=== PATIENT | male | born 1990 ===

== ENCOUNTER 2024-10-10 14:02 | Outpatient (REF) | payer SELFPAY ==
--- OUTSIDE RECORDS SUMMARY | 2024-10-10 15:49 | XMS_ITS | Encounter Summary ---
Author Organization [employer] Address [address] [facility] 7[address] [place] [address] Care Team Providers Care House Wrecker Name Role Phone Meghana Selin NAGEL Primary Care Provider [phone] Reason for Visit * Reason Comments Cough Nasal Congestion Encounter Details Date Type Department Care Team ([facility] st Contact Info) Description 10/10/2024 11:20 AM EST Office Visit [facility] [address] [place] [address] [phone] Marcus Davalos MD [address] [place] [address] Viral URI Social History Tobacco Use Types Packs/Day Years Used Date Smoking Tobacco: Never Passive Smoke Exposure: Never Smokeless Tobacco: Never Alcohol Use Standard Drinks/Week Comments Yes 0 (1 standard drink = 0.6 oz pur e alcohol) Rarely Housing Stability Answer Date Recorded What is your housing situation today? I have jovanni renteria 07/23/[address] you li ve. Do you have problems with any of the following? None of the above 07/23/2023 Food Insecurity Answer Date Recorded Within the past 12 months, y ou worried that your food would run out before you got money to buy more: Never True 07/23/2023 Within the past 12 months,th e food you bought just didn't last and you didn't have enough money to get more: Never True 02/2023 Utilities Answer Date Recorded In the past 12 months, has t he electric, gas, oil or water company threatened to shut off services in your home? No 07/23/2023 Depression Answer Date Recorded Patient Health Questionnaire-2 Score 0 09/15/2022 Sex and Gender Information Value Date Recorded Sex Assigned at Male 07/17/2022 10:36 AM EDT Legal Sex Male 10:36 AM EDT Gender Identity Male 07/17/2022 10:36 AM EDT Sexual Orientation Straight 07/17/2022 10 :36 AM EDT documented as of this encounter Last Filed Vital Signs Vital Sign Reading Time Taken Comments Blood Pressure 145/85 10/10/2024 11:15 AM EST Pulse 79 10/10/2024 11:15 AM EST Temperature 36.8 ??C (98.3 ??F) 10/10/2024 11:[address] Respiratory Rate 16 10/10/2024 11:15 AM EST Oxygen Saturation 98% 10/10/2024 11:15 AM EST Inhaled Oxygen Concentration - - Weight 85.3 kg (188 lb) 10/10/2024 11:15 AM EST Height - - Body Mass Index 28.59 09/15/2022 9:31 AM EST documented in this encounter Progress Notes * Marcus Davalos MD - 10/10/2024 11:20 AM EST Subjective History was provided by the patient. Carmelo Mendoza is a 34 y.o. male who presents for evaluation of symptoms of a URI. Symptoms include cough, fever, and congestion. Onset of symptoms was 6 days ago, gradually improving since that time. Associated negative symptoms include shortness of breath, vomiting, and diarrhea. Evaluation to date: none. Recently recovered from viral gastroenteritis. Objective Vitals: 10/10/24 1115 BP: (!) 145/85 BP Location: Left arm Patient Position: Sitting BP Cuff Size: Adult Pulse: 79 Resp: 16 Temp: 98.3 ??F (36.8 ??C) TempSrc: Temporal SpO2: 98% Weight: 188 lb (85.3 kg) Physical Exam Vitals reviewed. Constitutional: General: He is not in acute distress. Appearance: Normal appearance. He is not ill-appearing, toxic-appearing or diaphoretic. HENT: Head: Normocephalic and atraumatic. Right Ear: Tympanic membrane, ear canal and external ear normal. Left Ear: Tympanic membrane, ear canal and external ear normal. Nose: Congestion present. No rhinorrhea. Mouth/Throat: Mouth: Mucous membranes are moist. Pharynx: Oropharynx is clear. No oropharyngeal exudate or posterior oropharyngeal erythema. Eyes: Extraocular Movements: Extraocular movements intact. Conjunctiva/sclera: Conjunctivae normal. Pupils: Pupils are equal, round, and reactive to light. Cardiovascular: Rate and Rhythm: Normal rate and regular rhythm. Heart sounds: Normal heart sounds. Pulmonary: Effort: Pulmonary effort is normal. No respiratory distress. Breath sounds: Normal breath sounds. No wheezing, rhonchi or rales. Musculoskeletal: Cervical back: Normal range of motion and neck supple. Lymphadenopathy: Cervical: No cervical adenopathy. Skin: General: Skin is warm and dry. Neurological: General: No focal deficit present. Mental Status: He is alert and oriented to person, place, and time. Psychiatric: Mood and Affect: Mood normal. Behavior: Behavior normal. Office Visit on 10/10/2024 Component Date Value Ref Range Status Influenza A 10/10/2024 Negative Negative, Indeterminate Final Influenza B 10/10/2024 Negative Negative, Indeterminate Final Rapid COVID Ag 10/10/2024 Negative Final Carmelo was seen today for cough and nasal congestion. Diagnoses and all orders for this visit: Viral URI - Influenza A (ID NOW Rapid Molecular) - Influenza B (ID NOW Rapid Molecular) - POCT Rapid COVID Ag - Respiratory Viral Panel PCR; Future Patient with a clinical presentation of viral URI Normal pulmonary exam and no respiratory distress O2 sat reassuring Rapid COVID-19 and Influenza A/B negative today Discussed supportive care with ample hydration, sleep position and rest Check Respiratory panel OTC supportive medications reviewed Droplet precautions discussed Advised to contact the clinic if no improvement of symptoms Indications for UC/ER use reviewed Work note provided documented in this encounter Plan of Treatment Scheduled Orders Name Type Priority Associated Diagnoses Orde r Schedule Respiratory Viral Panel PCR Lab Routine Viral URI Expected: 10/10/2024 (Approximate), Expires: 10/10/2025 documented as of this encounter Procedures Procedure Name Priority Date/Time Associated Diagnosis Comments POCT INFLUENZA B (ID NOW RAPID MOLECULAR) Routine 10/10/2024 11:17 AM EST Viral URI POCT INFLUENZA A (ID NOW RAPID MOLECULAR) Routine 10/10/2024 11:17 AM EST Viral URI POCT RAPID COVID ANTIGEN Routine 10/10/2024 11:17 AM EST Viral URI documented in this encounter Results * POCT Rapid COVID Ag (10/10/2024 11:17 AM EST) Pathologist [facility] Rapid COVID Ag Negative Swab 10/10/2024 11:1 7 AM EST us Marcus Davalos MD POINT OF CARE TEST ENTER/EDIT OR DERABLES Final Result * Influenza B (ID NOW Rapid Molecular) (10/10/2024 11:17 AM EST) [facility] Influenza B Negative Negative, Indeterminate [facility] Swab 10/10/2024 11:1 7 AM EST us Marcus Davalos MD POINT OF CARE TEST ENTER/EDIT OR DERABLES Final Result Performing Organization Address [facility] Co de Phone Number [facility] [address] [place] [phone] * Influenza A (ID NOW Rapid Molecular) (10/10/2024 11:17 AM EST) [facility] Influenza A Negative Negative, Indeterminate [facility] Swab 10/10/2024 11:1 7 AM EST us Marcus Davalos MD POINT OF CARE TEST ENTER/EDIT OR DERABLES Final Result Performing Organization Address [facility] Co de Phone Number [facility] [address] [place] [phone] documented in this encounter Visit Diagnoses Diagnosis Viral URI Acute upper respiratory infections of unspecified site documented in this encounter Care Teams House Wrecker Relationship Specialty Start Date End Date Selin Kowalski ANP [address] [place] [phone] PCP - General Family Medicine 08/16/22 documented as of this encounter
--- OUTSIDE RECORDS SUMMARY | 2024-10-10 15:49 | XMS_ITS | Clinical Summary ---
Author Organization [employer] Address [address] [facility] 7t [place] [address] Care Team Providers Care Net Wpf Developer Name Role Phone Selin Kowalski SHONA Primary Care Provider [phone] Allergies No known active allergies Medications No known medications Active Problems No known active problems Encounters Date Type Department Care Team Description 10/10/2024 11:20 AM EST Office Visit [facility] [address] [place] [address] Marcus Davalos MD Viral URI from Last 3 Months Immunizations Name Administration Dates Next Due Influenza injectable quadriv alent preservative free 09/15/2022,06/14/2021,07/08/2020,2017 Moderna Covid-19 Vaccine 12+ 02/09/2021,01/06/20 21 Tdap 03/04/2021 Varicella 12/30/2015 Social History Tobacco Use Types Packs/Day Years Used Date Smoking Tobacco: Never Passive Smoke Exposure: Never Smokeless Tobacco: Never Tobacco Cessation:Counseling Given: No Alcohol Use Standard Drinks/Week Comments Yes 0 (1 standard drink = 0.6 oz pur e alcohol) Rarely Housing Stability Answer Date Recorded What is your housing situation today? I have jovannilorie renteria 07/23/[address] you [...] Orientation Straight 07/17/2022 10 :36 AM EDT Last Filed Vital Signs Vital Sign Reading Time Taken Comments Blood Pressure 145/85 10/10/2024 11:15 AM EST Pulse 79 10/10/2024 11:15 AM EST Temperature 36.8 ??C (98.3 ??F) 10/10/2024 11:[address] Respiratory Rate 16 10/10/2024 11:15 AM EST Oxygen Saturation 98% 10/10/2024 11:15 AM EST Inhaled Oxygen Concentration - - Weight 85.3 kg (188 lb) 10/10/2024 11:15 AM EST Height 172.7 cm (5' 8 ) 09/15/2022 9:31 AM EST Body Mass Index 28.59 09/15/2022 9:31 AM EST Plan of Treatment Health Maintenance Due Date Last Done Comments Alcohol/Substance Use Screening 2001 Family Planning (PISQ) 2004 Hepatitis B Vaccines (1 of 3 - 19+ 3-dose series) 2008 Depression Screening 09/15/2023 09/15/2022, 09/15/20 22 SDOH Screening 09/15/2023 09/15/2022 Tobacco Screening 09/15/2023 09/15/2022 COVID-19 Vaccine ( season) 2024 09/16/2021, 02/09/2021, 01/05/2021 Influenza Vaccine (#1) 2024 , 06/14/2021, 07/08/2020, Additional history exists Lipid Panel 03/04/2026 03/04/2021 DTaP/Tdap/Td Vaccines (2 - Td or Tdap) 03/04/2031 03/04/2021 Zoster Vaccines (1 of 2) 2039 RSV Patients and Patients Aged 60 years or older (1 - 1-dose 75+ series) 2064 HIV Screening Completed 03/04/2021 Hepatitis C Screening Completed 03/04/2021 HIB Vaccines Aged Out No longer eligi ble based on patient's age to complete this topic HPV Vaccines Aged Out No longer eligi ble based on patient's age to complete this topic Hepatitis A Vaccines Aged Out No long er eligible based on patient's age to complete this topic IPV Vaccines Aged Out No longer eligi ble based on patient's age to complete this topic Meningococcal Vaccine Aged Out No el deborah eligible based on patient's age to complete this topic Pneumococcal Vaccine: Pediatrics (0 to 5 Years) and At-Risk Patients (6 to 64 Years) Aged Out No longer eligible based on patient's age to complete this topic RSV under 20 months Aged Out No longe r eligible based on patient's age to complete this topic Rotavirus Vaccines Aged Out No longer eligible based on patient's age to complete this topic Procedures Procedure Name Priority Date/Time Associated Diagnosis Comments POCT RAPID COVID ANTIGEN Routine 10/10/2024 11:17 AM EST Viral URI POCT INFLUENZA B (ID NOW RAPID MOLECULAR) Routine 10/10/2024 11:17 AM EST Viral URI POCT INFLUENZA A (ID NOW RAPID MOLECULAR) Routine 10/10/2024 11:17 AM EST Viral URI ZZZ HISTORICAL HEPATITIS C AB W/REFL TO HCV RNA, QN, PCR Routine 03/04/2021 10:02 AM EDT HIV 1/2 ANTIGEN/ANTIBODY, FOURTH GENERATION W/RFL Routine 03/04/2021 10:02 AM EDT LIPID PANEL, STANDARD Routine 03/04/2021 10:02 AM EDT from Last 3 Months or Most Recently Relevant to Health Maintenance Results * Influenza B (ID NOW Rapid Molecular) (10/10/2024 11:17 AM EST) Influenza B Negative Negative, Indeterminate [facility] Swab 10/10/2024 11:1 7 AM EST us Marcus Davalos MD POINT OF CARE TEST ENTER/EDIT OR DERABLES Final Result [facility] [address] [place] [phone] * Influenza A (ID NOW Rapid Molecular) (10/10/2024 11:17 AM EST) [facility] Influenza A Negative Negative, Indeterminate [facility] Swab 10/10/2024 11:1 7 AM EST us Marcus Davalos MD POINT OF CARE TEST ENTER/EDIT OR DERABLES Final Result Performing Organization Address City/[facility]/ZIP Co de Phone Number [facility] [address] [place] [phone] * POCT Rapid COVID Ag (10/10/2024 11:17 AM EST) [facility] Rapid COVID Ag Negative Swab 10/10/2024 11:1 7 AM EST us Marcus Davalos MD POINT OF CARE TEST ENTER/EDIT OR DERABLES Final Result * HEPATITIS C AB W/REFL TO HCV RNA, QN, PCR (03/04/2021 10:02 AM EDT) [facility] HEPATITIS C ANTIBODY NON-REACT NURA NON-REACT NURA [facility] INDEX 0.01 <1.00 [facility] Comment: ?? HCV antibody was non-reactive. There is no laboratory ?? evidence of HCV infection. ?? In most cases, no further action is required. However, if recent HCV exposure is suspected, a test for HCV RNA (test code 02283) is suggested. ?? For additional information please refer to http://education.[employer]/faq/TLZ32k1 (This link is being provided for informational/ educational purposes only.) ?? 03/04/2021 10:0 2 AM EDT Kirby Eng MD HISTORICAL/NON ORDERABLE LAB S Final Result Performing Organization Address [facility] Co de Phone Number [facility] [address] [place] [address], * HIV 1/2 ANTIGEN/ANTIBODY,FOURTH GENERATION W/RFL (03/04/2021 10:02 AM EDT) Pathologist [facility] HIV-1/2 ANTIGEN AND ANTIBODIES, 4TH GENERATION W/ REFLEX NON-REACT NURA NON-REACT NURA [facility] Comment: HIV-1 antigen and HIV-1/HIV-2 antibodies were not detected. There is no laboratory evidence of HIV infection. ?? PLEASE NOTE: This information has been disclosed to you from records whose confidentiality may be protected by state law. ??If your state requires such protection, then the state law prohibits you from making any further disclosure of the information without the specific written consent of the person to whom it pertains, or as otherwise permitted by law. A general authorization for the release of medical or other information is NOT sufficient for this purpose. ? For additional information please refer to http://education.[employer]/faq/VFV828 (This link is being provided for informational/ educational purposes only.) ? The performance of this assay has not been clinically validated in patients less than 2 years old. ?? 03/04/2021 10:0 2 AM EDT Kirby Eng MD LAB BLOOD ORDERABLES Final R esult Performing Organization Address [facility] Co de Phone Number [facility] [address] [place] [address], * (ABNORMAL) LIPID PANEL, STANDARD (03/04/2021 10:02 AM EDT) Pathologist [facility] Chol/HDLC Ratio 3.8 <5.0 (calc) [facility] Cholesterol, Total 182 <200 mg/dL [facility] HDL Cholesterol 48 > OR = 40 mg/dL [facility] LDL Cholesterol 109(H) mg/dL (calc) [facility] Comment: Reference range: <100 ?? Desirable range <100 mg/dL for primary prevention; ?? <70 mg/dL for patients with CHD or diabetic patients ?? with > or = 2 CHD risk factors. ?? LDL-C is now calculated using the Júnior ?? calculation, which is a validated novel method providing ?? better accuracy than the Friedewald equation in the ?? estimation of LDL-C. ?? Charlie RICHARDSON et al. GLENDA. 2013;310(19): 5748-5729 ?? (http://education.[employer]/faq/SGV411) Non-HDL Cholesterol 134(H) <130 mg/dL (calc) [facility] Comment: For patients with diabetes plus 1 major ASCVD risk ?? factor, treating to a non-HDL-C goal of <100 mg/dL ?? (LDL-C of <70 mg/dL) is considered a therapeutic ?? option. Triglycerides 137 <150 mg/dL [facility] 03/04/2021 10:0 2 AM EDT us Kirby Eng MD LAB BLOOD ORDERABLES Final R esult [facility] [address] from Last 3 Months or Most Recently Relevant to Health Maintenance Insurance [facility] [employer] Care Teams Net Wpf Developer Relationship Specialty Start Date End Date Selin Kowalski ANP [address] [place] [phone] PCP - General Family Medicine 08/16/22
[2024-10-11 10:35] LABS: Adenovirus PCR Not Detected (Not Detect.); Bordetella parapertussis PCR Not Detected (Not Detect.); Bordetella pertussis PCR Not Detected (Not Detect.); Chlamydia pneumoniae PCR Not Detected (Not Detect.); Coronavirus 229E PCR Not Detected (Not Detect.); Coronavirus HKU1 PCR Not Detected (Not Detect.); Coronavirus NL63 PCR Detected (Not Detect.); Coronavirus OC43 PCR Not Detected (Not Detect.); Human metapneumovirus PCR Not Detected (Not Detect.); Influenza A PCR Not Detected (Not Detect.); Influenza B PCR Not Detected (Not Detect.); Mycoplasma pneumoniae PCR Not Detected (Not Detect.); Parainfluenza 1 PCR Not Detected (Not Detect.); Parainfluenza 2 PCR Not Detected (Not Detect.); Parainfluenza 3 PCR Not Detected (Not Detect.); Parainfluenza 4 PCR Not Detected (Not Detect.); RSV PCR Not Detected (Not Detect.); Rhino/Enterovirus PCR Not Detected (Not Detect.)
[2024-10-11 10:49] LABS: SARS-CoV-2 PCR Not Detected (Not Detect.)
== END 2024-10-10 14:03 | disposition home or self-care (01) ==
LOC: HO.HHCLNP 14:02
PROVIDERS: Visit Provider Family Medicine
DX: J06.9 Acute upper respiratory infection, unspecified (principal); Z11.52 Encounter for screening for COVID-19
CPT/HCPCS: 87633